=== PATIENT | male | born 1950 | race Caucasian/White ===

== ENCOUNTER 2017-02-01 08:16 | Inpatient (IN) | payer MEDICARE, OTHER ==
[2017-02-01] MEDS ORDERED: SODIUM CHLORIDE 0.9% 1,000 ML IV STA (08:43)
[2017-02-01] MEDS ORDERED: PANTOPRAZOLE 40 MG/10 ML VIAL IVP STA (08:43)
[2017-02-01] MEDS ORDERED: ONDANSETRON 4 MG/2 ML VIAL IVP STA (08:43)
--- NOTE | 2017-02-01 08:45 | ED ---
General Adult HPI - General Chief complaint: GI Bleed Stated complaint: GI Bleed Time Seen by Provider: 02/01/17 08:23 Source: patient, EMS, RN notes reviewed Mode of arrival: EMS Limitations: altered mental status - History of Present Illness Initial comments: Patient is a pleasant 66-year-old male presenting to the emergency department with concern for ileus and upper GI hemorrhage. Transfer form states patient has had vomiting and ileus on x-ray. Nursing report had concern for coffee- ground emesis. Patient admits to having nausea and vomiting 2-3 times. Patient states he is also had 2-3 times of diarrhea. He should denies any abdominal discomfort. Patient somewhat is a poor historian. - Related Data Allergies Allergy/AdvReac Type Severity Reaction Status Date / Time No Known Allergies Allergy Verified 02/01/17 08:52 Review of Systems ROS Statement: Those systems with pertinent positive or pertinent negative responses have been documented in the HPI. ROS Other: All systems not noted in ROS Statement are negative. Constitutional: Denies: fever Eyes: Denies: eye pain ENT: Denies: ear pain Respiratory: Denies: cough Cardiovascular: Denies: chest pain Endocrine: Denies: fatigue Gastrointestinal: Reports: nausea, vomiting, diarrhea. Denies: abdominal pain Genitourinary: Denies: dysuria Musculoskeletal: Denies: back pain Skin: Denies: rash Neurological: Denies: weakness Past Medical History Past Medical History: GI Bleed Additional Past Medical History / Comment(s): Unable to obtain further history due to pt being a poor historian History of Any Multi-Drug Resistant Organisms: C-DIFF Past Surgical History: Unable to Obtain Past Psychological History: No Psychological Hx Reported Smoking Status: Unknown if ever smoked Past Alcohol Use History: None Reported Past Drug Use History: None Reported General Exam Limitations: altered mental status General appearance: alert, in no apparent distress Head exam: Present: atraumatic, normocephalic Eye exam: Present: normal appearance ENT exam: Present: normal oropharynx Neck exam: Present: normal inspection Respiratory exam: Present: normal lung sounds bilaterally Cardiovascular Exam: Present: regular rate, normal rhythm Expanded Peripheral pulses: 2+: Dorsalis Pedis (R), Dorsalis Pedis (L) GI/Abdominal exam: Present: soft. Absent: tenderness Extremities exam: Present: normal inspection. Absent: pedal edema, calf tenderness Neurological exam: Present: alert Psychiatric exam: Present: normal affect, normal mood Skin exam: Present: normal color Course Vital Signs 02/01/17 02/01/17 02/01/17 08:19 08:25 09:25 Temperature 98.3 F 98.3 F Pulse Rate 64 65 64 Respiratory 18 17 17 Rate Blood Pressure 96/53 96/53 110/50 O2 Sat by Pulse 96 98 95 Oximetry Medical Decision Making - Medical Decision Making Patient reevaluated and updated. Case discussed with Dr. Hansen, who will admit for Dr. Szymanski. - Lab Data Result diagrams: 02/01/17 08:32 02/01/17 08:32 Lab Results 02/01/17 02/01/17 02/01/17 Range/Units 08:32 08:32 08:32 WBC 6.2 (3.8-10.6) k/uL RBC 3.90 L (4.30-5.90) m/uL Hgb 11.9 L (13.0-17.5) gm/dL Hct 37.2 L (39.0-53.0) % MCV 95.4 (80.0-100.0) fL MCH 30.5 (25.0-35.0) pg MCHC 32.0 (31.0-37.0) g/dL RDW 16.7 H (11.5-15.5) % Plt Count 170 (150-450) k/uL Neutrophils % 70 % Lymphocytes % 16 % Monocytes % 7 % Eosinophils % 3 % Basophils % 0 % Neutrophils # 4.3 (1.3-7.7) k/uL Lymphocytes # 1.0 (1.0-4.8) k/uL Monocytes # 0.5 (0-1.0) k/uL Eosinophils # 0.2 (0-0.7) k/uL Basophils # 0.0 (0-0.2) k/uL Hypochromasia Slight Anisocytosis Slight APTT 24.6 (22.0-30.0) sec Sodium 140 (137-145) mmol/L Potassium 4.8 (3.5-5.1) mmol/L Chloride 114 H (98-107) mmol/L Carbon Dioxide 14 L (22-30) mmol/L Anion Gap 12 mmol/L BUN 29 H (9-20) mg/dL Creatinine 1.73 H (0.66-1.25) mg/dL Est GFR (MDRD) Af Amer 48 (>60 ml/min/1.73 sqM) Est GFR (MDRD) Non-Af 40 (>60 ml/min/1.73 sqM) Glucose 81 (74-99) mg/dL Calcium 8.5 (8.4-10.2) mg/dL Total Bilirubin 0.6 (0.2-1.3) mg/dL AST 20 (17-59) U/L ALT 46 (21-72) U/L Alkaline Phosphatase 62 (38-126) U/L Total Protein 6.4 (6.3-8.2) g/dL Albumin 3.3 L (3.5-5.0) g/dL Lipase 39 (23-300) U/L - Radiology Data Radiology results: image reviewed (Abdominal x-ray shows enteritis versus ileus. ) Disposition Clinical Impression: Upper gastrointestinal hemorrhage Disposition: ADMITTED IP TO THIS [facility] Referrals: Lauri Szymanski MD [Primary Care Provider] - 1-2 days Time of Disposition: 09:43
[2017-02-01 08:58] LABS: Anisocytosis Slight; Basophils % (A) 0 %; CH 29.8; CHCM 31.4; Eosinophils # (A) 0.2 k/uL (0-0.7); Eosinophils % (A) 3 %; HCT 37.2 % (39.0-53.0); HDW 2.61; HGB 11.9 gm/dL (13.0-17.5); Hypochromasia Slight; Luc # (Auto) 0.25; Luc % (Auto) 4; Lymphocytes % (A) 16 %; MCH 30.5 pg (25.0-35.0); MCV 95.4 fL (80.0-100.0); Mean Platelet Volume 7.7; Monocytes # (A) 0.5 k/uL (0-1.0); Monocytes % (A) 7 %; Neutrophils # (A) 4.3 k/uL (1.3-7.7); Neutrophils % (A) 70 %; RDW 16.7 % (11.5-15.5); WBC 6.2 k/uL (3.8-10.6); WBC (Perox) 6.27
[2017-02-01 09:11] LABS: Calcium 8.5 mg/dL (8.4-10.2); Potassium 4.8 mmol/L (3.5-5.1); Total Bilirubin 0.6 mg/dL (0.2-1.3); Total Protein 6.4 g/dL (6.3-8.2)
--- NOTE | 2017-02-01 09:30 | XR ---
Abdomen HISTORY: Nausea vomiting and diarrhea Frontal view of the abdomen submitted on 4 images and correlated to prior abdomen 09/25/2008 There are air-filled loops of small and large bowel. Basilar atelectatic changes are suspected in the lung bases. Degenerative disc changes in the visualized spine. There is no pneumoperitoneum. Probabl e vascular calcifications within the pelvis IMPRESSION: Findings could represent enteritis or ileus, follow-up as indicated.
[2017-02-01] MEDS ORDERED: ONDANSETRON 4 MG/2 ML VIAL IVP PRN (09:43)
[2017-02-01] MEDS ORDERED: NALOXONE 0.4 MG/ML 1 ML VIAL IV PRN (09:43)
[2017-02-01 15:40] VITALS: BMI 38.3
[2017-02-01] MEDS ORDERED: ACETAMINOPHEN TAB 500 MG TAB PO PRN (16:42)
[2017-02-01] MEDS ORDERED: MAGNESIUM HYDROXIDE 2,400 MG/10 ML CUP PO PRN (16:42)
[2017-02-01] MEDS ORDERED: NYSTATIN 100,000 UNIT/GM POWD 15 GM TOPICAL SCH (16:45)
[2017-02-01] MEDS ORDERED: ALPRAZolam 0.25 MG TAB PO PRN (16:47)
[2017-02-01] MEDS ORDERED: HYDROcodone/APAP 5-325MG 1 EACH TAB PO PRN (16:47)
[2017-02-01] MEDS ORDERED: LEVOTHYROXINE 25 MCG TAB PO ONE (17:00)
[2017-02-01] MEDS ORDERED: CHERRY FLAVOR 60 ML BOTTLE PO PRN (17:22)
[2017-02-01] MEDS: PROMETHAZINE 25 MG TAB PO SCH (17:36)
[2017-02-01] MEDS: TOPIRAMATE 25 MG TAB PO SCH (17:37)
[2017-02-01] MEDS: CARVEDILOL 12.5 MG TAB PO SCH (17:37)
[2017-02-01] MEDS: CHOLESTYRAMINE (WITH SUGAR) 4 GM PACKET PO SCH (17:37)
[2017-02-01] MEDS: SODIUM CHLORIDE 0.9% 1,000 ML IV SCH (17:38)
[2017-02-01] MEDS ORDERED: VANCOMYCIN ORAL SOLUTION 250 MG/5 ML BOTTLE PO SCH (18:00)
[2017-02-01] MEDS: hydrALAZINE HCL 50 MG TAB PO SCH (21:00)
[2017-02-01] MEDS: PANTOPRAZOLE 40 MG/10 ML VIAL IV SCH (21:00)
[2017-02-01] MEDS: traMADol 50 MG TAB PO SCH (21:01)
[2017-02-01] MEDS: PRAVASTATIN SODIUM 40 MG TAB PO SCH (21:01)
[2017-02-01] MEDS: LACTOBACILLUS ACIDOPH & BULGAR 1 EACH PACKET PO SCH (21:01)
--- NOTE | 2017-02-01 21:01 | HP ---
DATE OF ADMISSION: 02/01/2017 Chief complaints: Gastrointestinal bleed. HISTORY OF PRESENT ILLNESS: This 66-year-old gentleman with a past history of multiple medical problems, COPD, CVA, dementia, GI bleed, hypertension, hyperlipidemia, history of bowel resection, hernia surgery, bipolar, being followed by Dr. Szymanski in [facility] is also seen by Dr. Lara previously. The patient had vomiting and ileus was found on the chest x-ray in the possible upper gastrointestinal hemorrhage is also noted. Emesis was apparently coffee-ground otherwise, the patient denies any abdominal discomfort. The patient is slightly confused and unable to give coherent history. Most of the history taken from my discussion with staff and review of the chart at this time. The patient also had 2 to 3 times diarrhea. There is no history of fever, rigors or chills. No history of headache, loss of consciousness or seizures. PAST MEDICAL HISTORY: History of COPD, cerebrovascular accident, transient ischemic attack, dementia, GI bleed, hypertension, hyperlipidemia, memory impairment, sleep apnea, tracheobronchitis, bowel resection and hernia repair, bipolar. MEDICATIONS: 1. Motrin 800 mg q8h p.r.n. 2. Milk of magnesia 2.4 grams daily, p.r.n. 4. Tylenol 1000 mg q.6 p.r.n. 5. Ultram 50 mg p.o. t.i.d. 6. Coumadin 250 mg q.6. 7. Promethazine 12.5 mg t.i.d. 9. Pravachol 40 mg. 10. Flagyl 500 mg t.i.d. 11. Calmoseptine one application t.i.d. 12. Topamax. 13. K-Dur 20 meq p.o. b.i.d. 14. Questran 4 grams p.o. b.i.d. 15. Apresoline 50 mg p.o. b.i.d. 16. Synthroid 25 mcg p.o. q.48h. 17. Coreg 12.5 mg p.o. b.i.d. 18. Claritin 10 mg p.o. daily. 19. Aldactone 25 mg p.o. daily. 20. Ecotrin 81 mg. 21. Zantac 75 mg q.h.s. 22. Probiotic one capsule q.h.s. Allergies are none. FAMILY HISTORY: No history of heart disease or strokes in the family. SOCIAL HISTORY: No history of smoking. No history of alcohol intake. REVIEW OF SYSTEMS: ENT: Diminishing hearing. Diminished vision. CARDIOVASCULAR: As mentioned earlier. RESPIRATORY: As mentioned earlier. GI: No nausea. : No dysuria. Nervous system: No numbness or weakness. ALLERGY/IMMUNOLOGY: No asthma or hayfever. MUSCULOSKELETAL: As mentioned earlier. HEMATOLOGY/ONCOLOGY: No history of anemia. ENDOCRINE: No history of diabetes mellitus , or hypothyroidism. CONSTITUTIONAL: as mentioned earlier. DERMATOLOGY: Negative. RHEUMATOLOGY: Negative. PSYCHIATRY: As mentioned earlier. PHYSICAL EXAMINATION: Alert and oriented times three. Pulse is 65, blood pressure 104/50, respirations 17, temperature 98.2. Pulse ox 97% on room air. HEENT: Conjunctivae normal. NECK: No jugular venous distention. CARDIOVASCULAR: S1, S2 muffled. RESPIRATORY: Breath sounds diminished at the bases. Scattered rhonchi and crackles. ABDOMEN: Soft, obese, nontender. Mild diffuse discomfort especially in the epigastrium. No guarding. No rigidity. No masses. No ascites. CENTRAL NERVOUS SYSTEM: No focal deficits. Higher functions as mentioned earlier. Moves all four limbs. LYMPHATICS: No lymph nodes palpable in the neck, axillae or groin. SKIN: No ulcer, rash or bleeding. JOINTS: No active deforming arthropathy. LABORATORY DATA : WBC 6.9, hemoglobin 11.9, sodium 140, potassium 4.8, creatinine 1.7. ASSESSMENT: 1. Acute upper gastrointestinal bleeding with possible peptic ulcer disease, acute blood loss anemia. 2. Acute and chronic renal failure. 3. Mild acidosis. 4. History of chronic obstructive pulmonary disease. 5. History of cerebrovascular accident, transient ischemic attack. 6. History of dementia. 7. History of gastrointestinal bleed. 8. Hypertension. 9. Hyperlipidemia. 10. History of memory impairment. 11. History of sleep apnea. 12. Hypothyroidism. 13. History of Clostridium difficile colitis. 14. History of bowel resection. 15. History of bipolar. RECOMMENDATIONS AND DISCUSSION: In this 66-year-old gentleman who presented with the multiple complex medical issues. We will monitor the patient closely. Continue the current medications. Continue symptomatic treatment. We will initiate the patient on empiric proton pump inhibitors as well as IV fluids. Avoid NSAIDS and antiplatelet agents. Gastroenterology has been consulted for possible EGD. Guarded prognosis. Further recommendations to follow. Discussed with the patient. A copy of dictation being forwarded to Dr. Szymanski who is the primary care physician. See orders for further details. MTDD
[2017-02-01] MEDS: MENTHOL-ZINC OXIDE OINT 113 GM TUBE TOPICAL SCH (21:02)
[2017-02-02] MEDS: SODIUM CHLORIDE 0.9% 1,000 ML IV SCH ×2 (00:22→16:32)
[2017-02-02 08:13] LABS: Anisocytosis Slight; Basophils % (A) 0 %; CH 29.6; Eosinophils # (A) 0.2 k/uL (0-0.7); Eosinophils % (A) 2 %; HCT 34.8 % (39.0-53.0); HDW 2.68; Hypochromasia Slight; Luc % (Auto) 3; Lymphocytes # (A) 0.9 k/uL (1.0-4.8); Lymphocytes % (A) 14 %; MCH 30.4 pg (25.0-35.0); MCHC 31.7 g/dL (31.0-37.0); Mean Platelet Volume 7.4; Monocytes # (A) 0.4 k/uL (0-1.0); Monocytes % (A) 5 %; Neutrophils % (A) 75 %; RBC 3.63 m/uL (4.30-5.90); RDW 16.4 % (11.5-15.5); WBC 6.7 k/uL (3.8-10.6); WBC (Perox) 7.02
[2017-02-02] MEDS: hydrALAZINE HCL 50 MG TAB PO SCH ×2 (08:18→21:46)
[2017-02-02] MEDS: CARVEDILOL 12.5 MG TAB PO SCH ×2 (08:18→17:17)
[2017-02-02] MEDS: LORATADINE 10 MG TAB PO SCH (08:18)
[2017-02-02] MEDS: CHOLESTYRAMINE (WITH SUGAR) 4 GM PACKET PO SCH ×2 (08:18→16:28)
[2017-02-02] MEDS: SPIRONOLACTONE 25 MG TAB PO SCH (08:18)
[2017-02-02] MEDS: TOPIRAMATE 25 MG TAB PO SCH ×2 (08:19→17:16)
[2017-02-02] MEDS: MENTHOL-ZINC OXIDE OINT 113 GM TUBE TOPICAL SCH ×2 (08:19→16:27)
[2017-02-02] MEDS: PROMETHAZINE 25 MG TAB PO SCH ×3 (08:19→17:16)
[2017-02-02] MEDS: PANTOPRAZOLE 40 MG/10 ML VIAL IV SCH ×2 (08:19→21:46)
[2017-02-02 08:22] LABS: Anion Gap 11 mmol/L; Blood Urea Nitrogen 18 mg/dL (9-20); Calcium 8.3 mg/dL (8.4-10.2); Carbon Dioxide 14 mmol/L (22-30); Chloride 117 mmol/L (98-107); Glucose 74 mg/dL (74-99); Non-African American GFR(MDRD) 51 (>60 ml/min/1.73 sqM); Potassium 4.6 mmol/L (3.5-5.1); Sodium 142 mmol/L (137-145)
[2017-02-02] MEDS: traMADol 50 MG TAB PO SCH ×3 (08:30→21:42)
[2017-02-02] MEDS ORDERED: PANTOPRAZOLE 40 MG/10 ML VIAL IV SCH (09:00)
--- NOTE | 2017-02-02 11:53 | P.CONS ---
History of Present Illness - Reason for Consult Consult date: 02/02/17 GI bleed coffee-ground emesis Requesting physician: Corrine Hansen - History of Present Illness 66-year-old gentleman resident [facility] with a past medical history of CVA with cognitive impairment, obesity, bowel resection, hyperlipidemia, hypertension, sleep apnea, C. diff, and COPD. Patient presents with reports of coffee-ground emesis at [facility]. According to nursing no episodes of overt hematemesis hematochezia melena. Patient is a poor historian history obtained from medical records and nursing staff. Hemoglobin 11.0-11.9. Platelet 161. white count 6.7. BUN 29. Creatinine 1.7. Clostridium difficile negative. Afebrile. Denies abdominal pain. Review of ECF medication; Motrin 800 mg as needed. Baby aspirin. Review of Systems Constitutional: Denies fever, chills, sweats, weight gain, or loss. HEENT: Negative for migraines, blurred vision or loss, earaches, drainage, tinnitus, oral mucosal lesions, dysphagia, or odynophagia. Cardiac: Hyperlipidemia. Hypertension. Negative for chest pain, arrhythmias, or palpitation. Respiratory: COPD. Sleep apnea. Negative for shortness of breath, hemoptysis, cough, or sputum production. Gastrointestinal: See HPI for pertinent findings. Genitourinary: Negative for hematuria, urgency, frequency, polyuria, dysuria, or penile discharge. Musculoskeletal: Negative for muscle aches, swelling, arthritis, and arthralgias. Neurologic: CVA. Endocrine: Negative for thyroid problems. Skin: Negative for rash or itching. Psychiatric: Cognitive impairment. Negative history for depression and anxiety ROS unobtainable: due to mental status (See HPI) Past Medical History Past Medical History: COPD, CVA/TIA, Dementia, GI Bleed, Hyperlipidemia, Hypertension, Memory Impairment, Sleep Apnea/CPAP/BIPAP, Thyroid Disorder Additional Past Medical History / Comment(s): Tracheobronchitis, MEL without device, CVA with R upper and lower extremity weakness, hypothyroid, anemia, muscle weakness, bowel obstruction/ischemia with surgery, L lower extremity wounds. History of Any Multi-Drug Resistant Organisms: C-DIFF Year Discovered:: 12/21/16 MDRO Source:: stool Past Surgical History: Bowel Resection, Hernia Repair Additional Past Surgical History / Comment(s): Exploratory laparotomy with bowel resection/lysis of adhesions, bilateral inguinal hernia repairs, picc line in/out. Past Anesthesia/Blood Transfusion Reactions: No Reported Reaction Past Psychological History: Bipolar Additional Psychological History / Comment(s): Pt resides at [facility]. He states he uses a walker to ambulate at times. Smoking Status: Never smoker Past Alcohol Use History: None Reported Additional Past Alcohol Use History / Comment(s): Pt started smoking in 1962 and quit in 2002. Past Drug Use History: None Reported - Past Family History Father Family Medical History: No Reported History Additional Family Medical History / Comment(s): Pt states father was healthy and lived to be very elderly. Mother Family Medical History: No Reported History Additional Family Medical History / Comment(s): Pt states his mother was healthy and lived to be very elderly. Medications and Allergies Home Medications Medication Instructions Recorded Confirmed Type Acetaminophen Tab [Tylenol Tab] 1,000 mg PO Q6HR PRN 02/01/17 02/01/17 History Aspirin EC [Ecotrin Low Dose] 81 mg PO HS 02/01/17 02/01/17 History Bisacodyl [Dulcolax] 10 mg RECTAL DAILY PRN 02/01/17 02/01/17 History Carvedilol [Coreg] 12.5 mg PO BID 02/01/17 02/01/17 History Cholestyramine (with Sugar) 4 gm PO BID 02/01/17 02/01/17 History [Questran] Ibuprofen [Motrin] 800 mg PO Q8H PRN 02/01/17 02/01/17 History L.acidoph,Paracasei, B.lactis 1 cap PO HS 02/01/17 02/01/17 History [Probiotic] Levothyroxine Sodium [Synthroid] 25 mcg PO Q48H 02/01/17 02/01/17 History Loratadine [Claritin] 10 mg PO DAILY 02/01/17 02/01/17 History Magnesium Hydroxide [Milk of 2,400 mg PO DAILY PRN 02/01/17 02/01/17 History Magnesia] Menthol/Zinc Oxide [Calmoseptine 1 applic TOPICAL TID 02/01/17 02/01/17 History Ointment] Nystatin [Nystop] 1 applic TOPICAL DIRECTED 02/01/17 02/01/17 History Potassium Chloride ER [K-Dur 20] 20 meq PO BID 02/01/17 02/01/17 History Pravastatin Sodium [Pravachol] 40 mg PO HS 02/01/17 02/01/17 History Promethazine HCl 12.5 mg PO TID@0700,1300,1900 MDD 02/01/17 02/01/17 History SEE COMMENT Ranitidine HCl [Zantac] 75 mg PO HS 02/01/17 02/01/17 History Spironolactone [Aldactone] 25 mg PO DAILY 02/01/17 02/01/17 History Topiramate [Topamax] 25 mg PO BID@0700,1900 02/01/17 02/01/17 History Vancomycin Oral Solution 250 mg PO Q6HR 02/01/17 02/01/17 History hydrALAZINE HCL [Apresoline] 50 mg PO BID 02/01/17 02/01/17 History metroNIDAZOLE [Flagyl] 500 mg PO TID@0500,1300,2100 02/01/17 02/01/17 History traMADol HCL [Ultram] 50 mg PO TID@0700,1300,2000 02/01/17 02/01/17 History Allergies Allergy/AdvReac Type Severity Reaction Status Date / Time No Known Allergies Allergy Verified 02/01/17 10:11 Physical Exam Vitals: Vital Signs Temp Pulse Pulse Resp BP BP Pulse Ox 02/02/17 07:00 98.1 F 70 20 126/69 96 02/02/17 00:00 62 16 02/01/17 23:00 97.1 F L 62 16 116/55 99 02/01/17 18:54 65 17 02/01/17 16:38 98.1 F 65 17 104/55 98 02/01/17 16:26 99 16 02/01/17 15:07 98.1 F 65 18 115/57 97 02/01/17 11:13 63 17 106/56 97 Intake and Output 02/01/17 02/02/17 02/02/17 22:59 06:59 14:59 Intake Total 710 671 Balance 710 671 Intake: Intake, IV Titration 671 Amount Sodium Chloride 0.9% 1, 671 000 ml @ 100 mls/hr IV . Q10H STA Rx#:[id number] Oral 710 Other: # Voids 2 1 # Bowel Movements 1 Weight 124.738 kg General appearance: The patient is alert, oriented, in no acute distress. HET: Head is normocephalic and atraumatic. Pupils are equal and reactive. Oropharynx is clear without lesions. Neck: Supple without lymphadenopathy. Trachea midline. Heart: S1 S2. Regular rate and rhythm. Lungs: No crackles or wheezes are heard. Abdomen: Soft, nontender, nondistended with bowel sounds. No peritoneal signs. No palpable organomegaly or masses. Extremities: Normal skin color and turgor. No cyanosis, rash, ulceration, clubbing, or edema. Radial and pedal pulses are 2/4 bilaterally. Neurological: No focal deficits. Strength and sensation are grossly intact. Results CBC & Chem 7: 02/02/17 07:26 02/02/17 07:26 Labs: Abnormal Lab Results - Last 24 Hours (Table) 02/02/17 02/02/17 Range/Units 07:26 07:26 RBC 3.63 L (4.30-5.90) m/uL Hgb 11.0 L (13.0-17.5) gm/dL Hct 34.8 L (39.0-53.0) % RDW 16.4 H (11.5-15.5) % Lymphocytes # 0.9 L (1.0-4.8) k/uL Chloride 117 H (98-107) mmol/L Carbon Dioxide 14 L (22-30) mmol/L Creatinine 1.40 H (0.66-1.25) mg/dL Calcium 8.3 L (8.4-10.2) mg/dL Assessment and Plan (1) Coffee ground emesis Narrative/Plan: Possible peptic ulcer disease possible NSAID-induced patient receiving Motrin an ECF. Suspect component of acute blood loss anemia. Status: Acute (2) Upper gastrointestinal hemorrhage Status: Acute Plan: 1. EGD evaluation. 2. Protonix 40 mg daily. 3. Monitor CBC. The powerhouse operator has discussed the risks, benefits and alternative therapies for the above-mentioned procedure and for both sedation/analgesia as well as necessary blood product administration, if indicated, as they pertain to this patient. The patient's advocate has indicated understanding and acceptance of the risks and procedures discussed. Thank you for this kind referral and the opportunity to participate in the care of your patient. This consultation was discussed with Dr. Pendleton. The impression and plan of care have been directed as dictated.
[2017-02-02] MEDS ORDERED: LACTATED RINGERS 1,000 ML IV ONE (15:19)
[2017-02-02] MEDS ORDERED: LIDOCAINE 1% INJ 10MG/ML (20 ML MDV) ONE (15:19)
[2017-02-02] MEDS ORDERED: PROPOFOL 10 MG/ML 20 ML VIAL IV ONE (15:19)
--- NOTE | 2017-02-02 15:50 | P.PCN ---
Date of Procedure: 02/02/17 Preoperative Diagnosis: Postoperative Diagnosis: Procedure(s) Performed: Procedure: Esophagogastroduodenoscopy and biopsy. Preoperative diagnosis: Coffee-ground emesis. Postoperative diagnosis: 1. Hiatal hernia and distal esophagitis. 2. Gastritis and duodenitis. 3. No active bleeding noted at the time of this exam. 4. Biopsy obtained from the antrum. Preparation sedation: Was provided by anesthesia. Brief clinical history: The patient is a 66-year-old gentleman resident [facility] with a past medical history of CVA with cognitive impairment, obesity , bowel resection, hyperlipidemia, hypertension, sleep apnea, C. diff, and COPD , presented with reports of coffee-ground emesis at [facility]. According to nursing no episodes of overt hematemesis, hematochezia or melena. Hemoglobin 11.0- 11.9. Platelet 161. white count 6.7. BUN 29. Creatinine 1.7. Clostridium difficile negative. Afebrile. Denies abdominal pain. Has been on motrin 800 mg as needed and baby aspirin. The details are summarized in the history and physical and dictated consultations and progress notes. Procedure: With the patient on his left lateral decubitus position and after informed consent and adequate sedation, I passed the Olympus-GIF 160 video upper endoscope through the cricopharyngeus down the esophagus. There was a sliding hiatal hernia measuring around 1-2 cm in the distal esophagus showed a small ulceration but no active bleeding. No strictures or Johnston's esophagus the endoscope was then passed into the stomach which was insufflated with air and inspected in detail including the retroflex view in the cardia. There was some mottling and erythema but no ulcers or erosions or active bleeding. Pyloric channel did not show any ulcers. Duodenal bulb and post bulbar area showed erythema and edema and there was a linear ulceration in the immediate post bulbar area covered with white exudate but no active bleeding. All secretions encountered today were clear in color. I obtained biopsies from the antrum then the endoscope was withdrawn. The patient tolerated the procedure well. Plan: the patient was reassured. Will allow diet and continue to monitor his blood counts and continue acid suppressive therapy while await the biopsy results. Further plans based on his course and biopsy results. Implants: Indications for Procedure: Operative Findings: Description of Procedure:
[2017-02-02] MEDS: LACTOBACILLUS ACIDOPH & BULGAR 1 EACH PACKET PO SCH (21:41)
--- NOTE | 2017-02-02 21:42 | PN ---
DATE OF SERVICE: 02/02/2017 This 66-year-old gentleman who was admitted with upper GI bleed had endoscopy by Dr. Pendleton. EGD showed a hiatal hernia and distal esophagitis, gastritis and duodenitis; no active bleeding ulcers. Biopsies were taken. The patient is being closely monitored at this time. No chest pain. No palpitation. No fever. On exam, alert and oriented x2. Pulse 70, blood pressure 126/69, respiration 20, temperature 98.2, pulse ox 96% on room air. HEENT: Conjunctivae normal. NECK: No jugular venous distention. CARDIOVASCULAR SYSTEM: S1, S2 muffled. RESPIRATORY SYSTEM: Breath sounds diminished at the bases. A few rhonchi. No crackles. ABDOMEN: Soft, nontender. No mass palpable. LEGS: No edema. No swelling. NERVOUS SYSTEM: diffusely weak. LABS: WBC 6.7, hemoglobin 11. CO2 is 14. Creatinine is 1.40. ASSESSMENT: 1. Acute upper gastrointestinal bleeding, possibly secondary to gastritis and duodenitis with mild acute blood loss anemia, stable. 2. Acute on chronic renal failure. 3. Mild acidosis. 4. Mild metabolic acidosis secondary to vomiting. 5. History of chronic obstructive pulmonary disease. 6. History of cerebrovascular accident, transient ischemic attack. 7. History of dementia. 8. History of gastrointestinal bleed. 9. Hypertension, essential. 10. Hyperlipidemia. 11. History of memory impairment. 12. History of sleep apnea. 13. History of hypothyroidism. 14. History of Clostridium difficile colitis. 15. History of bowel resection. 16. History of bipolar. RECOMMENDATIONS AND DISCUSSION: I recommend to continue with the current medications, continue with symptomatic treatment. Otherwise, at this time I recommend continuing with proton pump inhibitors. Resume the home medication. Monitor creatinine closely. Closely follow with Gastroenterology. Further recommendations to follow. MTDD
[2017-02-02] MEDS: PRAVASTATIN SODIUM 40 MG TAB PO SCH (22:47)
[2017-02-03] MEDS: MENTHOL-ZINC OXIDE OINT 113 GM TUBE TOPICAL SCH (00:25)
[2017-02-03] MEDS: SODIUM CHLORIDE 0.9% 1,000 ML IV SCH (03:17)
[2017-02-03] MEDS ORDERED: LEVOTHYROXINE 25 MCG TAB PO SCH (06:30)
[2017-02-03 07:32] LABS: Anisocytosis Slight; Basophils % (A) 0 %; CH 29.6; CHCM 31.4; Eosinophils # (A) 0.1 k/uL (0-0.7); Eosinophils % (A) 2 %; HCT 34.5 % (39.0-53.0); HDW 2.73; Hypochromasia Slight; Luc # (Auto) 0.12; Luc % (Auto) 2; Lymphocytes # (A) 0.9 k/uL (1.0-4.8); Lymphocytes % (A) 15 %; MCH 30.2 pg (25.0-35.0); MCHC 31.8 g/dL (31.0-37.0); MCV 94.9 fL (80.0-100.0); Mean Platelet Volume 7.9; Monocytes # (A) 0.4 k/uL (0-1.0); Monocytes % (A) 7 %; Neutrophils # (A) 4.2 k/uL (1.3-7.7); Neutrophils % (A) 73 %; RBC 3.63 m/uL (4.30-5.90); RDW 16.4 % (11.5-15.5); WBC 5.7 k/uL (3.8-10.6); WBC (Perox) 5.97
[2017-02-03 07:41] LABS: Anion Gap 9 mmol/L; Blood Urea Nitrogen 13 mg/dL (9-20); Calcium 8.1 mg/dL (8.4-10.2); Carbon Dioxide 15 mmol/L (22-30); Chloride 119 mmol/L (98-107); Glucose 89 mg/dL (74-99); Non-African American GFR(MDRD) 55 (>60 ml/min/1.73 sqM); Potassium 4.1 mmol/L (3.5-5.1); Sodium 143 mmol/L (137-145)
[2017-02-03 08:31] VITALS: BP 100/55; PULSE 67; RESP 20; TEMP 97.5
[2017-02-03] MEDS ORDERED: NEOMYCIN-BACITRACIN-POLY OINT 14 GM TUBE TOPICAL SCH (09:00)
[2017-02-03] MEDS: PANTOPRAZOLE 40 MG/10 ML VIAL IV SCH (10:27)
[2017-02-03] MEDS: PROMETHAZINE 25 MG TAB PO SCH (10:29)
[2017-02-03] MEDS: TOPIRAMATE 25 MG TAB PO SCH (10:30)
[2017-02-03] MEDS: LORATADINE 10 MG TAB PO SCH (10:30)
[2017-02-03] MEDS: SPIRONOLACTONE 25 MG TAB PO SCH (10:31)
[2017-02-03] MEDS: hydrALAZINE HCL 50 MG TAB PO SCH (10:31)
[2017-02-03] MEDS: CARVEDILOL 12.5 MG TAB PO SCH (10:31)
[2017-02-03] MEDS: CHOLESTYRAMINE (WITH SUGAR) 4 GM PACKET PO SCH (10:31)
[2017-02-03] MEDS: traMADol 50 MG TAB PO SCH (10:34)
--- NOTE | 2017-02-03 11:40 | DS ---
DATE OF ADMISSION: 02/01/2017 DATE OF DISCHARGE: FINAL DIAGNOSES: 1. Acute upper gastrointestinal bleeding, possibly secondary to gastritis and duodenitis, with mild acute blood loss anemia, stable. 2. Acute on chronic renal failure. 3. Mild acidosis. 4. Mild metabolic acidosis secondary to vomiting. 5. History of recent Clostridium difficile colitis. 6. History of chronic obstructive pulmonary disease. 7. Cerebrovascular accident, transient ischemic attack. 8. Dementia. 9. History of gastrointestinal bleed. 10. Hypertension, essential. 11. Hyperlipidemia. 12. History of memory impairment. 13. History of sleep apnea. 14. History of hypothyroidism. 15. History of Clostridium difficile colitis. 16. History of bowel resection. 17. History of bipolar. DISCHARGE DISPOSITION: Patient will be transferred to [facility] in stable condition with guarded prognosis. Total time taken 35 minutes. HISTORY OF PRESENT ILLNESS: This 66-year-old gentleman with a past medical history of multiple medical problems was admitted with upper GI bleeding and vomiting. Hemoglobin was 11. Patient underwent EGD by Dr. Pendleton which showed gastritis and duodenitis. The patient was advised to stop NSAIDs as well as antiplatelet agents for now; to be reconsidered later; follow-up labs, also. On exam, vitals are stable. CARDIOVASCULAR SYSTEM: S1, S2 muffled. ABDOMEN: Soft. NERVOUS SYSTEM: No focal deficit. DISCHARGE ADVICE AND MEDICATIONS: 1. Diet is cardiac, soft, as tolerated. 2. Activity limited until followup. 3. Follow up with Dr. Briseno in 2 to 3 days. 4. CBC, BMP in 2 to 3 days. 5. Continued followup. 6. Tylenol 1000 mg q.6 p.r.n. 7. Dulcolax 10 mg daily p.r.n. 8. Coreg 12.5 mg p.o. b.i.d. 9. Cholestyramine 4 grams p.o. b.i.d. 10. Apresoline 50 mg p.o. b.i.d. 11. D[place] 5 mg q.6 p.r.n. 12. Probiotic 1 capsule p.o. at bedtime. 13. Synthroid 25 mcg q.48 hours. 14. Claritin 10 mg p.o. daily. 15. Milk of Magnesia as before. 16. Calmoseptine as before. 17. Triple antibiotic local application daily. 18. Nystop 1 application topically daily. 19. Zofran 4 mg q.6 p.r.n. 20. Protonix 40 mg p.o. b.i.d. 21. K-Dur 20 mEq p.o. b.i.d. 22. Pravachol 40 mg p.o. at bedtime. 23. Promethazine 12.5 mg t.i.d. 24. Aldactone 25 mg p.o. daily. 25. Topamax 25 mg p.o. b.i.d. 26. Ultram 50 mg p.o. t.i.d. p.r.n. for pain. 27. Check magnesium and potassium. Once again, the patient will be discharged in stable condition with guarded prognosis.
--- NOTE | 2017-02-03 18:35 | PN ---
Patient is a 66-year-old pleasant, white male resident of [facility] admitted to the hospital with acute upper gastrointestinal bleed. He had several episodes of coffee-ground emesis. He underwent an upper endoscopy done yesterday by Dr. Pendleton which showed hiatal hernia and distal esophagitis with mild gastritis and duodenitis. No evidence of active bleeding or ulcerations seen. He is presently on Protonix 40 mg twice daily. He is doing well. Diet has been advanced as tolerated. No further episodes of bleeding or coffee-ground emesis. On physical examination, appears comfortable in no apparent distress. Vitals as are stable. Blood pressure is 114/70, pulse rate 83, temperature 97.2. HEENT: Unremarkable. Conjunctivae pink. Sclerae anicteric. Oral cavity, no lesions. NECK: No JVD or lymph node enlargement. Chest was clear to auscultation. HEART: Regular rate and rhythm. Supple positive. No organomegaly. EXTREMITIES: No pedal edema. SKIN: No rashes. NEURO: Alert and oriented x3. No focal deficits. LABS: WBC 5.7, hemoglobin 11. Platelets normal at 142. IMPRESSION: Acute upper gastrointestinal bleeding secondary to gastritis and duodenitis. The patient is stable and no further bleeding. EGD done yesterday by Dr. Pendleton. RECOMMENDATIONS: Advance diet. Continue Protonix 40 mg daily. Discharge home today with an outpatient follow up in 2 to 3 weeks.
== END 2017-02-03 12:55 | DRG 378 ==
LOC: EC 08:16 → 4MS4W 09:43 → EEVIPCON 09:43 → 5MS5E 14:56
PROVIDERS: ADMIT Hospitalist; ATTEND Hospitalist
PROC: 0DB68ZX Excision of Stomach, Via Natural or Artificial Opening Endoscopic, Diagnostic (ICD-10-PCS; principal; 2017-02-02 10:05)
DX: K29.71 Gastritis, unspecified, with bleeding (principal); D62 Acute posthemorrhagic anemia; N17.9 Acute kidney failure, unspecified; E87.2 Acidosis; J44.9 Chronic obstructive pulmonary disease, unspecified; F03.90 Unspecified dementia, unspecified severity, without behavioral disturbance, psychotic disturbance, mood disturbance, and anxiety; K29.80 Duodenitis without bleeding; E78.5 Hyperlipidemia, unspecified; I12.9 Hypertensive chronic kidney disease with stage 1 through stage 4 chronic kidney disease, or unspecified chronic kidney disease; G47.33 Obstructive sleep apnea (adult) (pediatric); E03.9 Hypothyroidism, unspecified; F31.9 Bipolar disorder, unspecified; K44.9 Diaphragmatic hernia without obstruction or gangrene; N18.9 Chronic kidney disease, unspecified; K20.9 Esophagitis, unspecified; E66.9 Obesity, unspecified; Z68.38 Body mass index [BMI] 38.0-38.9, adult; Z86.73 Personal history of transient ischemic attack (TIA), and cerebral infarction without residual deficits; Z86.19 Personal history of other infectious and parasitic diseases; Z79.82 Long term (current) use of aspirin; Z79.899 Other long term (current) drug therapy
CPT/HCPCS: 36415; 43239; 74000; 80048; 80053; 83690; 85025; 85730; 86850; 86900; 86901; 87324; 88305; 88342; 96361; 96374; 96375; 99285